=== PATIENT | female | born 1960 | race Caucasian/White ===

== ENCOUNTER 2022-10-13 16:10 | Inpatient (IN) ==
[2022-10-13] MEDS ORDERED: IOPAMIDOL 100 ML BOTTLE IV ONE (16:11)
--- NOTE | 2022-10-13 16:25 | Emergency Department Note ---
SOB HPI General Chief Complaint: Shortness of Breath/Dyspnea Stated Complaint: SoB Time Seen by Provider: 10/13/22 16:21 Source: EMS Mode of arrival: EMS Limitations: no limitations History of Present Illness HPI Narrative: Narrative: Patient is a 61-year-old female that presents to the emergency department today by EMS after she went to [facility] and was seen at [facility] with chief complaint of shortness of breath. Patient reports that her symptoms started approximately 6 days ago where she has been experiencing shortness of breath that is worse with ambulation. She does report a history of COPD but does not wear any oxygen at home. She has not had any cough, fevers, or chills. She denies any chest pain. She has not had any abdominal pain, nausea, or vomiting. She has not had any hemoptysis. She arrived with 3 L via nasal cannula and oxygen saturations were 90%. Room air sats were reported by EMS of 68%. Upon arrival patient's oxygen saturations were 84% on room air. Related Data Home Medications Medication Instructions Recorded Confirmed atenolol 25 mg tablet 50 mg PO DAILY 07/16/15 06/29/21 fluoxetine 40 mg capsule (Prozac) 40 mg PO DAILY 07/16/15 06/29/21 imipramine HCl 50 mg tablet 150 mg PO HS 07/16/15 06/29/21 albuterol sulfate 90 mcg/actuation 1 - 2 puff PO Q4HP PRN wheezing 05/26/21 06/29/21 aerosol inhaler (Ventolin HFA) aspirin 81 mg tablet,delayed 1 tab PO QDAY 05/26/21 06/29/21 release atorvastatin 40 mg tablet 1 tab PO QDAY 05/26/21 06/29/21 bupropion HCl 150 mg tablet,12 hr 1 tab PO QDAY 05/26/21 06/29/21 sustained-release clopidogrel 75 mg tablet 1 tab PO QDAY 05/26/21 06/29/21 methadone 10 mg tablet 10 mg PO Q6H PRN Pain 05/26/21 06/29/21 Allergies Allergy/AdvReac Type Severity Reaction Status Date / Time nitrofurantoin Allergy Unknown Vomiting Verified 06/29/21 10:19 [From Macrodantin] Review of Systems ROS ROS Narrative: Narrative: All systems ED: reviewed and negative except as stated. PFSH Narrative Patient History Narrative: Narrative: Medical/Surgical/Family History All Active Problems (Updated 10/13/22 @ 22:09 by Irineo Lester DNP) Hypokalemia (Acute) COPD (chronic obstructive pulmonary disease) (Chronic) Elevated hemidiaphragm (Chronic) Chronic back pain (Chronic) Tension headache (Chronic) Panic attacks (Chronic) Gastric ulcer (Chronic) Anxiety and depression (Chronic) Fibrocystic breast disease (Chronic) Postmenopausal HRT (hormone replacement therapy) (Chronic) History of cervical cancer (Chronic) Sicca syndrome (Chronic) Rash and other nonspecific skin eruption (Chronic) Neck pain (Chronic) Hot flashes (Chronic) Anemia (Chronic) GERD (gastroesophageal reflux disease) (Chronic) Hypercholesterolemia (Chronic) Fasting hyperglycemia (Chronic) Mitral valve prolapse (Chronic) Other speech disturbance (Chronic) Insomnia (Chronic) Hypertension (Chronic) Hyperlipidemia (Chronic) Bronchitis (Chronic) Other fdc (current) drug therapy (Chronic) Pain of both sacroiliac joints (Chronic) Rheumatoid arthritis (Chronic) Opioid dependence (Chronic) Occipital neuralgia (Chronic) Lumbar radiculopathy (Chronic) Lumbar back pain (Chronic) Panlobular emphysema (Chronic) Daytime hypersomnia (Chronic) Osteopenia (Chronic) Stenosis of right carotid artery (Chronic) Transient ischemic attack (Chronic) Poor balance (Chronic) Poor short term memory (Chronic) Arthritis of right wrist (Chronic) Other specified fracture of left pubis, initial encounter for closed fracture (Chronic) Acute low back pain (Chronic) Hypoxemia (Chronic) Unspecified fracture of sacrum, subsequent encounter for fracture with routine healing (Chronic) Fungal dermatitis (Chronic) SOB (shortness of breath) (Chronic) Pneumonia due to coronavirus disease 2019 (Chronic) Interstitial pulmonary disease, unspecified (Chronic) Urinary frequency (Chronic) Hypoxia (Chronic) Dyspnea (Chronic) COVID-19 long hauler (Chronic) Bilateral pneumonia (Chronic) COVID-19 (Chronic) Laceration (Chronic) Medical History Acute low back pain Anemia Anxiety and depression Arthritis of right wrist Bilateral pneumonia Bronchitis Chronic back pain COPD (chronic obstructive pulmonary disease) COVID-19 COVID-19 long hauler Daytime hypersomnia Dyspnea Elevated hemidiaphragm right Fasting hyperglycemia Fibrocystic breast disease Fungal dermatitis Gastric ulcer GERD (gastroesophageal reflux disease) History of cervical cancer Hot flashes Hypercholesterolemia Hyperlipidemia Hypertension Hypoxemia Hypoxia Insomnia Interstitial pulmonary disease, unspecified Laceration Lumbar back pain Lumbar radiculopathy Mitral valve prolapse Neck pain Occipital neuralgia Opioid dependence Osteopenia Other fdc (current) drug therapy Other specified fracture of left pubis, initial encounter for closed fracture Other speech disturbance Pain of both sacroiliac joints Panic attacks Panlobular emphysema Pneumonia due to coronavirus disease 2019 Poor balance Poor short term memory Postmenopausal HRT (hormone replacement therapy) Rash and other nonspecific skin eruption Rheumatoid arthritis Sicca syndrome SOB (shortness of breath) Stenosis of right carotid artery Tension headache Transient ischemic attack Carotid territory Unspecified fracture of sacrum, subsequent encounter for fracture with routine healing Urinary frequency Surgical History History of section History of hysterectomy Total; cervical cancer Family History Mother , age 69, had 13 strokes Stroke Father Hypertension Sister Substance use Family/Other Depression Social History Smoking Status: Former smoker Alcohol Intake Frequency: does not drink Substance Use: does not use Exam Narrative Narrative: Narrative: General Limitations: no limitations General appearance: Present alert and in no apparent distress Eye Eye: Present normal appearance; Absent scleral icterus ENT ENT: Present mucous membranes moist Neck Neck: Present normal inspection and full ROM; Absent lymphadenopathy Chest Chest: Present normal inspection and symmetric chest wall rise; Absent tenderness Respiratory Respiratory: Present normal lung sounds bilaterally; Absent respiratory distress, rales/crackles, wheezes or accessory muscle use Cardiovascular Cardiovascular: Present regular rate, normal rhythm and normal heart sounds Extremities Extremities: Present normal inspection and normal capillary refill; Absent pedal edema, pretibial edema, joint swelling or cyanosis Neurological Neurological: Present alert and oriented X3 Psychiatric Psychiatric: Present normal affect and normal mood Skin Skin: Present warm (WNL), dry and normal color Course Vital Signs Vital signs: Vital Signs Temperature 98.1 F 10/13/22 16:11 Pulse Rate 79 10/13/22 16:11 Respiratory Rate 20 10/13/22 16:11 Blood Pressure 140/84 10/13/22 16:11 Pulse Oximetry (%) 100 10/13/22 16:11 Oxygen Delivery Method Room Air 10/13/22 16:11 Temperature 98.1 F 10/13/22 16:11 Pulse Rate 82 10/13/22 21:32 Respiratory Rate 12 10/13/22 21:32 Blood Pressure 110/79 10/13/22 21:06 Pulse Oximetry (%) 92 10/13/22 21:32 Oxygen Delivery Method Nasal Cannula 10/13/22 21:32 Oxygen Flow Rate (L/min) 2 10/13/22 21:32 MDM MDM Narrative Medical decision making narrative: Narrative: Patient is a 61-year-old female who presented to the emergency department today by EMS after she was initially evaluated at [facility] earlier today and was found to be hypoxic on room air. Patient reported starting to have symptoms of shortness of breath 6 days ago. She does not have oxygen at home and reports history of COPD. On arrival to the emergency department she received a DuoNeb from EMS. Her lung sounds are clear to auscultate. After the DuoNeb she is still requiring 1 L of O2 via nasal cannula to keep oxygen saturations greater than 90% today in the emergency department. Proceed with cardiac work- up to evaluate for acute coronary syndrome as well as differential diagnosis is of potential PE and pneumonia. Patient's EKG today is normal sinus rhythm with rate of 74. QTc 529 and QT 476. The EKG to my review does not show any findings of acute coronary syndrome. Her [id number] troponin today is negative. The 1 view chest x-ray to my review I do not see any definite infiltrate, pneumothorax, or sign of acute cardiopulmonary finding. Proceed with CTA of chest to evaluate for potential PE cause for the patient to have the hypoxia today. CTA findings does not reveal any PE today. Findings are more consistent with COPD. Patient's [id number] chemistry panel today reveals potassium is 2.7. Patient's sodium is 138. Her creatinine 0.6. Glucose 120. She was given 40 mEq of oral potassium prior supplementation of the hypokalemia and 20 mEq K rider intravenously. Patient's procalcitonin today is normal. CBC is rather normal. She does not have any leukocytosis or anemia. Her hepatic panel is unremarkable. COVID-19 and influenza testing today are negative. Radiologist did read the chest x-ray and that shows moderate atypical CHF. Patient's proBNP today is 1585. June of last year this was 758. She did not have improvement with DuoNeb today when she arrived to the emergency department. She is still requiring O2 and does not have O2 at home. I feel that admitting patient for her hypoxia today would be of best interest for the patient where arrangements could be made for home O2 use, replacement of potassium with monitoring of potassium level, and diuresis could be done as an inpatient. Abiodun rios was receiving potassium supplement today for the hypokalemia. I did proceeded with 20 mg of IV furosemide for diuresis today to see if this would help with the patients symptoms as potential fluid overload could be a possibility. I was able to speak with Dr. Cortes who is on today for the hospitalist and he accepted patient for hospital admission as she does have any hypoxia. We were able to review the CTA findings that are more consistent with likely COPD changes rather than CHF on the CT scan. Patient was given the 20 mg of IV furosemide today for some diuresis, and Dr. Cortes had ordered some inflammatory markers and will plan on admitting patient for the hypokalemia and hypoxia as she is requiring supplemental oxygen does not have any oxygen at home. Lab Data Lab results reviewed: Yes I reviewed the patient's lab results. 10/13/22 16:52 Labs: Lab Results 10/13/22 10/13/22 10/13/22 Range/Units 16:52 16:52 16:52 WBC 9.7 (4.5-11.0) K/mcL RBC 4.35 (3.59-5.38) M/mcL Hgb 12.6 (11.2-15.7) g/dL Hct 39.1 (34.1-44.9) % POC Hct (36-48) MCV 89.9 (80.0-100.0) fL MCH 29.0 (26.0-34.0) pg MCHC 32.2 (31.0-36.0) g/dL RDW 12.0 (11.5-14.5) % Plt Count 325 (140-440) K/mcL MPV 9.7 (8.8-12.5) fL Immature Gran % (Auto) 0.3 (0.0-0.5) % Neut % (Auto) 56.2 (38.0-78.0) % Lymph % (Auto) 29.7 (15.5-49.0) % [place] % (Auto) 8.6 (1.0-12.0) % Eos % (Auto) 4.7 (0.0-7.0) % Baso % (Auto) 0.5 (0.0-2.0) % Lymph # (Auto) 2.88 (1.50-4.80) K/mcL [place] # (Auto) 0.83 (0.10-0.90) K/mcL Eos # (Auto) 0.46 (0.00-0.70) K/mcL Baso # (Auto) 0.05 (0.00-0.30) K/mcL Immature Gran # 0.03 (0.00-0.05) K/mcl Absolute Neutrophils 5.44 (1.80-8.00) K/mcL ESR (0-30) mm/hr POC Sodium (133-145) POC Potassium (3.3-5.1) POC Chloride (96-108) POC Total CO2 (22-30) POC Anion Gap (8.0-16.0) POC BUN (6-20) POC Creatinine (0.6-1.2) POC Glucose (70-105) POC WB Ioniz Calcium (1.16-1.32) Total Bilirubin 0.4 (0.1-1.0) mg/dL Direct Bilirubin < 0.2 (0-0.3) mg/dL AST 22 (<32) U/L ALT 12 (<40) U/L Alkaline Phosphatase 149 H (39-117) U/L C-Reactive Protein (0.03-0.80) mg/dL NT-Pro-B Natriuret Pep (<125.0) pg/mL Total Protein 7.4 (5.9-8.4) gm/dL Albumin 3.7 (3.2-5.2) gm/dL Globulin 3.7 (2.2-3.7) gm/dL Procalcitonin 0.05 (<0.10) ng/mL POC Troponin I (0.00-0.08) 10/13/22 10/13/22 10/13/22 Range/Units 16:52 16:52 16:56 WBC (4.5-11.0) K/mcL RBC (3.59-5.38) M/mcL Hgb (11.2-15.7) g/dL Hct (34.1-44.9) % POC Hct 41.0 (36-48) MCV (80.0-100.0) fL MCH (26.0-34.0) pg MCHC (31.0-36.0) g/dL RDW (11.5-14.5) % Plt Count (140-440) K/mcL MPV (8.8-12.5) fL Immature Gran % (Auto) (0.0-0.5) % Neut % (Auto) (38.0-78.0) % Lymph % (Auto) (15.5-49.0) % [place] % (Auto) (1.0-12.0) % Eos % (Auto) (0.0-7.0) % Baso % (Auto) (0.0-2.0) % Lymph # (Auto) (1.50-4.80) K/mcL [place] # (Auto) (0.10-0.90) K/mcL Eos # (Auto) (0.00-0.70) K/mcL Baso # (Auto) (0.00-0.30) K/mcL Immature Gran # (0.00-0.05) K/mcl Absolute Neutrophils (1.80-8.00) K/mcL ESR 73 H (0-30) mm/hr POC Sodium 138 (133-145) POC Potassium 2.7 L* (3.3-5.1) POC Chloride 98 (96-108) POC Total CO2 27.0 (22-30) POC Anion Gap 16.0 (8.0-16.0) POC BUN 10 (6-20) POC Creatinine 0.6 (0.6-1.2) POC Glucose 120 H (70-105) POC WB Ioniz Calcium 1.14 L (1.16-1.32) Total Bilirubin (0.1-1.0) mg/dL Direct Bilirubin (0-0.3) mg/dL AST (<32) U/L ALT (<40) U/L Alkaline Phosphatase (39-117) U/L C-Reactive Protein 15.70 H (0.03-0.80) mg/dL NT-Pro-B Natriuret Pep (<125.0) pg/mL Total Protein (5.9-8.4) gm/dL Albumin (3.2-5.2) gm/dL Globulin (2.2-3.7) gm/dL Procalcitonin (<0.10) ng/mL POC Troponin I (0.00-0.08) 10/13/22 10/13/22 Range/Units 16:59 17:14 WBC (4.5-11.0) K/mcL RBC (3.59-5.38) M/mcL Hgb (11.2-15.7) g/dL Hct (34.1-44.9) % POC Hct (36-48) MCV (80.0-100.0) fL MCH (26.0-34.0) pg MCHC (31.0-36.0) g/dL RDW (11.5-14.5) % Plt Count (140-440) K/mcL MPV (8.8-12.5) fL Immature Gran % (Auto) (0.0-0.5) % Neut % (Auto) (38.0-78.0) % Lymph % (Auto) (15.5-49.0) % [place] % (Auto) (1.0-12.0) % Eos % (Auto) (0.0-7.0) % Baso % (Auto) (0.0-2.0) % Lymph # (Auto) (1.50-4.80) K/mcL [place] # (Auto) (0.10-0.90) K/mcL Eos # (Auto) (0.00-0.70) K/mcL Baso # (Auto) (0.00-0.30) K/mcL Immature Gran # (0.00-0.05) K/mcl Absolute Neutrophils (1.80-8.00) K/mcL ESR (0-30) mm/hr POC Sodium (133-145) POC Potassium (3.3-5.1) POC Chloride (96-108) POC Total CO2 (22-30) POC Anion Gap (8.0-16.0) POC BUN (6-20) POC Creatinine (0.6-1.2) POC Glucose (70-105) POC WB Ioniz Calcium (1.16-1.32) Total Bilirubin (0.1-1.0) mg/dL Direct Bilirubin (0-0.3) mg/dL AST (<32) U/L ALT (<40) U/L Alkaline Phosphatase (39-117) U/L C-Reactive Protein (0.03-0.80) mg/dL NT-Pro-B Natriuret Pep 1585.0 H (<125.0) pg/mL Total Protein (5.9-8.4) gm/dL Albumin (3.2-5.2) gm/dL Globulin (2.2-3.7) gm/dL Procalcitonin (<0.10) ng/mL POC Troponin I < 0.02 (0.00-0.08) Radiology Data Radiology results reviewed: Yes I reviewed the patient's radiology results. Radiology results narrative: Ordering Physician:Irineo Lester DNP Date of Service:10/13/22 Procedure(s):XR chest 1V portable CLINICAL INFORMATION: dyspnea COMPARISON: 10/08/2022 FINDINGS: Heart is borderline enlarged. Mediastinum is unremarkable. Pulmonary vessels are mildly distended with moderate interstitial edema throughout both lungs. Bullous disease seen in the right lung base. No effusions. Moderate chronic elevation right diaphragm unchanged IMPRESSION: Moderate atypical CHF Interpreted and Authenticated by: Mina Dc 10/13/22 Ordering Physician:Irineo Lester DNP Date of Service:10/13/22 Procedure(s):CT angio chest CLINICAL INFORMATION: Hypoxia COMPARISON: Chest CT 05/28/2021 TECHNIQUE: 80ml of Isovue-370 were injected intravenously. Using SmartPrep to maximize pulmonary artery opacification, .625mm helical slices were obtained from the lung apices through the lung bases. Following reconstruction, 2.5 mm sagittal, coronal, and axial reformations were processed. The exam was reviewed at mediastinal, lung, and bone windows. The exam was performed using radiation dose optimization techniques including, but not limited to, automated exposure control, adjustment of the mA and/or kV according to patient size and use of iterative reconstruction technique. FINDINGS: Pulmonary parenchymal windows show moderate centrilobular emphysema featuring chronic bronchitis with elevated lung volumes and wall thickening/dilatation of the bronchi. There are multiple bullae predominantly in the upper lobes and also scattered within both lower and right middle lobes. In addition, there is patchy groundglass airspace disease throughout the left lung, the posterior segment of the right upper lobe and the superior segment of the right lower lobe. This has actually improved since the comparison exam approximately 1.5 years ago. There are no nodules. Pleural spaces are normal. Mediastinal windows show the heart is grossly normal in size and configuration. The central pulmonary arteries are moderately enlarged with the main pulmonary artery diameter of 3.6 cm findings are compatible pulmonary hypertension related to chronic lung disease. The pulmonary arteries are also well opacified-no evidence of embolus. Multiple mildly enlarged lymph nodes in the hilar and pericarinal region are unchanged compatible with benign reactive adenopathy related to chronic inflammation. The esophagus is grossly normal. The thyroid is unremarkable. Bone and soft tissues of the chest wall show no abnormality. Images through the superior abdomen are normal. IMPRESSION: 1. No evidence of pulmonary embolus. 2. Moderate centrilobular emphysema. 3. Patchy groundglass airspace disease throughout the left lung, posterior segment of the right upper lobe and superior segment of the right lower lobe. This has actually improved moderately since the comparison CT 1.5 years ago. Differential diagnosis for chronic groundglass disease includes hypersensitivity pneumonitis, organizing pneumonia, chronic eosinophilic pneumonia, and alveolar proteinosis. Consider pulmonology referral. 4. Moderate central pulmonary artery enlargement compatible with pulmonary hypertension related to chronic lung disease 5. Mildly enlarged lymph nodes in both hilar and lower mediastinal region are unchanged and compatible with benign reactive adenopathy related to chronic pulmonary inflammatory disease. Interpreted and Authenticated by: Mina Dc 10/13/22 Discharge Plan Patient/Caregiver Discharge Instructions Pt seen by DINING ROOM SUPERVISOR/PA only: No Clinical Impression: Hypoxia, Hypokalemia, COPD (chronic obstructive pulmonary disease) Patient Disposition: Xfer As Inpt ([facility]) Follow up with: Stolte,Keke R, JUNIOR ACCOUNTANT BOOKKEEPER [Primary Care Provider] - Prescriptions: No Action Trelegy Ellipta 100-62.5-25 mcg blister with device 0RF fluoxetine [Prozac] 40 MG capsule 40 mg PO DAILY imipramine HCl 50 MG tablet 150 mg PO HS atenolol 25 MG tablet 50 mg PO DAILY atorvastatin 40 mg tablet 1 tab PO QDAY bupropion HCl 150 mg tablet sustained-release 12 hr 1 tab PO QDAY methadone 10 mg Tablet 10 mg PO Q6H PRN (Reason: Pain) clopidogrel 75 mg tablet 1 tab PO QDAY aspirin 81 mg tablet,delayed release (DR/EC) 1 tab PO QDAY albuterol sulfate [Ventolin HFA] 90 mcg/actuation HFA aerosol inhaler 1 - 2 puff PO Q4HP PRN (Reason: wheezing)
[2022-10-13 17:10] LABS: POC Calcium, Ionized 1.14 (1.16-1.32); POC Creatinine 0.6 (0.6-1.2); POC Potassium 2.7 (3.3-5.1)
[2022-10-13] MEDS ORDERED: POTASSIUM CHLORIDE 20 MEQ TABLET PO ONE ×2 (17:12→22:24)
[2022-10-13] MEDS ORDERED: POTASSIUM CHLORIDE 20 MEQ in DEXTROSE 5% IN WATER 250 ML IV ONE (17:12)
--- NOTE | 2022-10-13 17:21 | XRay Report ---
CLINICAL INFORMATION: dyspnea COMPARISON: 10/08/2022 FINDINGS: Heart is borderline enlarged. Mediastinum is unremarkable. Pulmonary vessels are mildly distended with moderate interstitial edema throughout both lungs. Bullous disease seen in the right lung base. No effusions. Moderate chronic elevation right diaphragm unchanged IMPRESSION: Moderate atypical CHF Interpreted and Authenticated by: Mina Dc 10/13/22
[2022-10-13 17:34] LABS: Basophils # (Auto) 0.05 K/mcL (0.00-0.30); Basophils % (Auto) 0.5 % (0.0-2.0); Eosinophils # (Auto) 0.46 K/mcL (0.00-0.70); Eosinophils % (Auto) 4.7 % (0.0-7.0); Hematocrit 39.1 % (34.1-44.9); Hemoglobin 12.6 g/dL (11.2-15.7); Lymphocytes # (Auto) 2.88 K/mcL (1.50-4.80); Lymphocytes % (Auto) 29.7 % (15.5-49.0); Mean Cell Volume 89.9 fL (80.0-100.0); Mean Corpuscular HGB Conc 32.2 g/dL (31.0-36.0); Mean Platelet Volume 9.7 fL (8.8-12.5); Monocytes # (Auto) 0.83 K/mcL (0.10-0.90); Monocytes % (Auto) 8.6 % (1.0-12.0); Neutrophils % (Auto) 56.2 % (38.0-78.0); Platelet Count 325 K/mcL (140-440); RBC 4.35 M/mcL (3.59-5.38); WBC 9.7 K/mcL (4.5-11.0)
[2022-10-13 17:59] LABS: ALT/SGPT 12 U/L (<40); AST/SGOT 22 U/L (<32); Albumin 3.7 gm/dL (3.2-5.2); Alkaline Phosphatase 149 U/L (39-117); Bilirubin,Direct < 0.2 mg/dL (0-0.3); Bilirubin,Total 0.4 mg/dL (0.1-1.0); Globulin 3.7 gm/dL (2.2-3.7)
[2022-10-13] MEDS ORDERED: FUROSEMIDE 20 MG/2 ML VIAL IV ONE (18:37)
--- NOTE | 2022-10-13 19:00 | Cat Scan Report ---
CLINICAL INFORMATION: Hypoxia COMPARISON: Chest CT 05/28/2021 TECHNIQUE: 80ml of Isovue-370 were injected intravenously. Using SmartPrep to maximize pulmonary artery opacification, .625mm helical slices were obtained from the lung apices through the lung bases. Following reconstruction, 2.5 mm sagittal, coronal, and axial reformations were processed. The exam was reviewed at mediastinal, lung, and bone windows. The exam was performed using radiation dose optimization techniques including, but not limited to, automated exposure control, adjustment of the mA and/or kV according to patient size and use of iterative reconstruction technique. FINDINGS: Pulmonary parenchymal windows show moderate centrilobular emphysema featuring chronic bronchitis with elevated lung volumes and wall thickening/dilatation of the bronchi. There are multiple bullae predominantly in the upper lobes and also scattered within both lower and right middle lobes. In addition, there is patchy groundglass airspace disease throughout the left lung, the posterior segment of the right upper lobe and the superior segment of the right lower lobe. This has actually improved since the comparison exam approximately 1.5 years ago. There are no nodules. Pleural spaces are normal. Mediastinal windows show the heart is grossly normal in size and configuration. The central pulmonary arteries are moderately enlarged with the main pulmonary artery diameter of 3.6 cm findings are compatible pulmonary hypertension related to chronic lung disease. The pulmonary arteries are also well opacified-no evidence of embolus. Multiple mildly enlarged lymph nodes in the hilar and pericarinal region are unchanged compatible with benign reactive adenopathy related to chronic inflammation. The esophagus is grossly normal. The thyroid is unremarkable. Bone and soft tissues of the chest wall show no abnormality. Images through the superior abdomen are normal. IMPRESSION: 1. No evidence of pulmonary embolus. 2. Moderate centrilobular emphysema. 3. Patchy groundglass airspace disease throughout the left lung, posterior segment of the right upper lobe and superior segment of the right lower lobe. This has actually improved moderately since the comparison CT 1.5 years ago. Differential diagnosis for chronic groundglass disease includes hypersensitivity pneumonitis, organizing pneumonia, chronic eosinophilic pneumonia, and alveolar proteinosis. Consider pulmonology referral. 4. Moderate central pulmonary artery enlargement compatible with pulmonary hypertension related to chronic lung disease 5. Mildly enlarged lymph nodes in both hilar and lower mediastinal region are unchanged and compatible with benign reactive adenopathy related to chronic pulmonary inflammatory disease. Interpreted and Authenticated by: Mina Dc 10/13/22
[2022-10-13] MEDS ORDERED: HYDROcodone/APAP 5/325MG TABLET PO ONE (20:37)
--- NOTE | 2022-10-13 21:15 | Internal Med History&Physical ---
HPI History of Present Illness Patient information: Note initiated : 10/13/22 at 9:07 pm Service Date, if different from initiated Date: [] Patient: Kin Shell a 61 y/o F admitted on . Chief Complaint: [] History of present illness: Ms. Shell is a 61 year old F Presents the ED with shortness of breath for past 6 days. Patient states she went to bed feeling okay on but Sunday started feeling crummy and short of breath especially with exertion. Patient has history of COVID-pneumonia and interstitial lung disease was on oxygen after her pneumonia for few months last year. Denies any fever chills or wheezing. Denies any cough or chest pain or sinus congestion. No swelling in her legs. Does complain of headache. In the ED she was hypoxic in the mid 80s and put on oxygen. CTA of the chest showed no PE but did showed moderate emphysema as well as bilateral groundglass opacities which have been present on previous imaging. Patient noted to be hypokalemic in the ED and given potassium. Troponin and procalcitonin were unremarkable. VBG unremarkable. Patient anxious and keeps asking about her chronic pain medication. Review of Systems: Pertinent positives as above. Denies fever/chills/nausea/vomiting/chest or abdo marisabel pain/cough/diarrhea. Remaining 10 point review of system reviewed negative. PHYSICAL EXAM General: Alert, Awake, No acute Distress Eyes/N/T: EOMI, no scleral icterus, PERRL, Head/Neck: neck supple, full ROM, normocephalic atraumatic CV: RRR, No murmurs, normal s1/s2 Pulm: subtle mild fine rale, no wheezingno respiratory distress Abd: soft, nontender, +BS x4 Ext: no clubbing/cyanosis/edema, nontender Neuro: Alert, CN 2-12 grossly intact, no focal deficits, moves all extremities, , sensations intact b/l upper/lower Psychiatric: Anxious Skin: warm/dry, normal color PFSH PFSH All Active Problems (Updated 10/13/22 @ 18:53 by Irineo Lester DNP) Congestive heart failure (Acute) Hypokalemia (Acute) COPD (chronic obstructive pulmonary disease) (Chronic) Elevated hemidiaphragm (Chronic) Chronic back pain (Chronic) Tension headache (Chronic) Panic attacks (Chronic) Gastric ulcer (Chronic) Anxiety and depression (Chronic) Fibrocystic breast disease (Chronic) Postmenopausal HRT (hormone replacement therapy) (Chronic) History of cervical cancer (Chronic) Sicca syndrome (Chronic) Rash and other nonspecific skin eruption (Chronic) Neck pain (Chronic) Hot flashes (Chronic) Anemia (Chronic) GERD (gastroesophageal reflux disease) (Chronic) Hypercholesterolemia (Chronic) Fasting hyperglycemia (Chronic) Mitral valve prolapse (Chronic) Other speech disturbance (Chronic) Insomnia (Chronic) Hypertension (Chronic) Hyperlipidemia (Chronic) Bronchitis (Chronic) 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) Pain of both sacroiliac joints (Chronic) Rheumatoid arthritis (Chronic) Opioid dependence (Chronic) Occipital neuralgia (Chronic) Lumbar radiculopathy (Chronic) Lumbar back pain (Chronic) Panlobular emphysema (Chronic) Daytime hypersomnia (Chronic) Osteopenia (Chronic) Stenosis of right carotid artery (Chronic) Transient ischemic attack (Chronic) Poor balance (Chronic) Poor short term memory (Chronic) Arthritis of right wrist (Chronic) Other specified fracture of left pubis, initial encounter for closed fracture (Chronic) Acute low back pain (Chronic) Hypoxemia (Chronic) Unspecified fracture of sacrum, subsequent encounter for fracture with routine healing (Chronic) Fungal dermatitis (Chronic) SOB (shortness of breath) (Chronic) Pneumonia due to coronavirus disease 2019 (Chronic) Interstitial pulmonary disease, unspecified (Chronic) Urinary frequency (Chronic) Hypoxia (Chronic) Dyspnea (Chronic) COVID-19 long hauler (Chronic) Bilateral pneumonia (Chronic) COVID-19 (Chronic) Laceration (Chronic) Medical History Acute low back pain Anemia Anxiety and depression Arthritis of right wrist Bilateral pneumonia Bronchitis Chronic back pain COPD (chronic obstructive pulmonary disease) COVID-19 COVID-19 long hauler Daytime hypersomnia Dyspnea Elevated hemidiaphragm right Fasting hyperglycemia Fibrocystic breast disease Fungal dermatitis Gastric ulcer GERD (gastroesophageal reflux disease) History of cervical cancer Hot flashes Hypercholesterolemia Hyperlipidemia Hypertension Hypoxemia Hypoxia Insomnia Interstitial pulmonary disease, unspecified Laceration Lumbar back pain Lumbar radiculopathy Mitral valve prolapse Neck pain Occipital neuralgia Opioid dependence Osteopenia 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 Other specified fracture of left pubis, initial encounter for closed fracture Other speech disturbance Pain of both sacroiliac joints Panic attacks Panlobular emphysema Pneumonia due to coronavirus disease 2019 Poor balance Poor short term memory Postmenopausal HRT (hormone replacement therapy) Rash and other nonspecific skin eruption Rheumatoid arthritis Sicca syndrome SOB (shortness of breath) Stenosis of right carotid artery Tension headache Transient ischemic attack Carotid territory Unspecified fracture of sacrum, subsequent encounter for fracture with routine healing Urinary frequency Surgical History History of section History of hysterectomy Total; cervical cancer Family History Mother , age 69, had 13 strokes Stroke Father Hypertension Sister Substance use Family/Other Depression Social History marital status: occupational status: retired physical activity: none smoking status: Former smoker alcohol intake frequency: does not drink substance use type: does not use additional history: Quit smoking in 2019. MEDS/ALLERGIES Home Medications and Allergies Home Medications Medication Instructions Recorded Confirmed Type atenolol 25 mg tablet 50 mg PO DAILY 07/16/15 06/29/21 History fluoxetine 40 mg capsule (Prozac) 40 mg PO DAILY 07/16/15 06/29/21 History imipramine HCl 50 mg tablet 150 mg PO HS 07/16/15 06/29/21 History albuterol sulfate 90 mcg/actuation 1 - 2 puff PO Q4HP PRN wheezing 05/26/21 06/29/21 History aerosol inhaler (Ventolin HFA) aspirin 81 mg tablet,delayed 1 tab PO QDAY 05/26/21 06/29/21 History release atorvastatin 40 mg tablet 1 tab PO QDAY 05/26/21 06/29/21 History bupropion HCl 150 mg tablet,12 hr 1 tab PO QDAY 05/26/21 06/29/21 History sustained-release clopidogrel 75 mg tablet 1 tab PO QDAY 05/26/21 06/29/21 History methadone 10 mg tablet 10 mg PO Q6H PRN Pain 05/26/21 06/29/21 History Allergies Allergy/AdvReac Type Severity Reaction Status Date / Time nitrofurantoin Allergy Unknown Vomiting Verified 06/29/21 10:19 [From Macrodantin] EXAM Constitutional Vitals: Temp Pulse Resp BP Pulse Ox O2 Del Method O2 Flow Rate 98.1 F 85 29 H 138/78 90 Nasal Cannula 2 10/13/22 16:11 10/13/22 20:55 10/13/22 20:55 10/13/22 20:05 10/13/22 20:55 10/13/22 18:06 10/13/22 18:06 DATA Data Completed and Pending Labs: Labs from last 24 hours 10/13/22 10/13/22 10/13/22 17:14 16:59 16:56 WBC RBC Hgb Hct POC Hct 41.0 MCV MCH MCHC RDW Plt Count MPV Immature Gran % (Auto) Neut % (Auto) Lymph % (Auto) Lipscomb % (Auto) Eos % (Auto) Baso % (Auto) Lymph # (Auto) Lipscomb # (Auto) Eos # (Auto) Baso # (Auto) Immature Gran # Absolute Neutrophils ESR POC Sodium 138 POC Potassium 2.7 L* POC Chloride 98 POC Total CO2 27.0 POC Anion Gap 16.0 POC BUN 10 POC Creatinine 0.6 POC Glucose 120 H POC WB Ioniz Calcium 1.14 L Total Bilirubin Direct Bilirubin AST ALT Alkaline Phosphatase C-Reactive Protein NT-Pro-B Natriuret Pep 1585.0 H Total Protein Albumin Globulin Procalcitonin POC Troponin I < 0.02 10/13/22 10/13/22 10/13/22 16:52 16:52 16:52 WBC RBC Hgb Hct POC Hct MCV MCH MCHC RDW Plt Count MPV Immature Gran % (Auto) Neut % (Auto) Lymph % (Auto) Lipscomb % (Auto) Eos % (Auto) Baso % (Auto) Lymph # (Auto) Lipscomb # (Auto) Eos # (Auto) Baso # (Auto) Immature Gran # Absolute Neutrophils ESR Pending POC Sodium POC Potassium POC Chloride POC Total CO2 POC Anion Gap POC BUN POC Creatinine POC Glucose POC WB Ioniz Calcium Total Bilirubin Direct Bilirubin AST ALT Alkaline Phosphatase C-Reactive Protein Pending NT-Pro-B Natriuret Pep Total Protein Albumin Globulin Procalcitonin 0.05 POC Troponin I 10/13/22 10/13/22 16:52 16:52 WBC 9.7 RBC 4.35 Hgb 12.6 Hct 39.1 POC Hct MCV 89.9 MCH 29.0 MCHC 32.2 RDW 12.0 Plt Count 325 MPV 9.7 Immature Gran % (Auto) 0.3 Neut % (Auto) 56.2 Lymph % (Auto) 29.7 Lipscomb % (Auto) 8.6 Eos % (Auto) 4.7 Baso % (Auto) 0.5 Lymph # (Auto) 2.88 Lipscomb # (Auto) 0.83 Eos # (Auto) 0.46 Baso # (Auto) 0.05 Immature Gran # 0.03 Absolute Neutrophils 5.44 ESR POC Sodium POC Potassium POC Chloride POC Total CO2 POC Anion Gap POC BUN POC Creatinine POC Glucose POC WB Ioniz Calcium Total Bilirubin 0.4 Direct Bilirubin < 0.2 AST 22 ALT 12 Alkaline Phosphatase 149 H C-Reactive Protein NT-Pro-B Natriuret Pep Total Protein 7.4 Albumin 3.7 Globulin 3.7 Procalcitonin POC Troponin I A/P Narrative A/P Narrative: A: *Acute on suspected chronic hypoxic respiratory failure: suspected exacerbation of ILD *Interstitial lung disease: Was on oxygen after COVID illness a year and half ago -has seen Kathia Green *COPD( ): Not on home oxygen *Hypokalemia: *Chronic pain: *Depression/anxiety: *Carotid artery stenosis: On aspirin/statin/Plavix *HTN: on BB P: -check esr/crp -empric abx, obtain SC -myco and viral studies pending -nebs, IS/Acapella, RT, home IH's -corticosteroids -O2 supp and wean as able -Monitor replace electrolytes as needed - -Continue home aspirin/statin/Plavix -Home medication reconciliation -RT to eval for home oxygen prior to discharge -ppx: Lovenox Time Spent With Patient Time: Total time spent is greater than 50% in coordination of care (as documented) at patient's floor/unit and/or counseling patient: Initial: Total time with patient: 75 - 90 minutes
[2022-10-13] MEDS ORDERED: ONDANSETRON 4 MG/2 ML VIAL IV PRN (22:24)
[2022-10-13] MEDS ORDERED: MAGNESIUM SULFATE 2 GM/50 ML BAG IV PRN (22:24)
[2022-10-13] MEDS ORDERED: POTASSIUM CHLORIDE 20 MEQ TABLET PO PRN ×2 (22:24)
[2022-10-13] MEDS ORDERED: ACETAMINOPHEN 325 MG TABLET PO PRN (22:24)
[2022-10-13] MEDS ORDERED: IPRATROPIUM/ALBUTEROL 3 ML AMPUL.NEB NEB PRN (22:24)
[2022-10-13] MEDS ORDERED: POTASSIUM CHLORIDE 40 MEQ in DEXTROSE 5% IN WATER 500 ML IV PRN (22:24)
[2022-10-13] MEDS ORDERED: SENNOSIDES 1 TABLET PO PRN (22:24)
[2022-10-13] MEDS ORDERED: POLYETHYLENE GLYCOL 3350 17 GM PACKET PO PRN (22:24)
[2022-10-13] MEDS ORDERED: morphine 4 MG/ML VIAL IV PRN (22:24)
[2022-10-13] MEDS ORDERED: AZITHROMYCIN 500 MG VIAL IV ONE (22:46)
[2022-10-13] MEDS: IPRATROPIUM/ALBUTEROL 3 ML AMPUL.NEB NEB SCH (22:49)
[2022-10-13] MEDS: AZITHROMYCIN 500 MG in DEXTROSE 5% IN WATER 250 ML IV SCH (23:06)
[2022-10-13] MEDS ORDERED: methylPREDNISolone SOD SUCC 125 MG/2 ML VIAL ONE ×2 (23:07→23:22)
[2022-10-13] MEDS: methylPREDNISolone SOD SUCC 125 MG/2 ML VIAL IV SCH (23:07)
[2022-10-13] MEDS: 0.9 % SODIUM CHLORIDE 10 ML SYRINGE IV SCH (23:08)
[2022-10-13] MEDS ORDERED: morphine 2 MG/ML VIAL ONE (23:26)
[2022-10-13] MEDS ORDERED: IPRATROPIUM/ALBUTEROL 3 ML AMPUL.NEB NEB ONE (23:28)
[2022-10-14 00:03] LABS: Basophils % (Manual) 1 % (0-2); Eosinophils % (Manual) 3 % (0-7); Lymphocytes % 30 % (15-49); Monocytes % (Manual) 2 % (1-12); Platelet Estimate NORMAL (Normal); RBC Morphology NORMAL (Normal); Segmented Neutrophils % 64 % (38-78)
[2022-10-14] MEDS ORDERED: methylPREDNISolone SOD SUCC 40 MG/ML VIAL IV ONE (05:21)
[2022-10-14] MEDS ORDERED: IPRATROPIUM/ALBUTEROL 3 ML AMPUL.NEB NEB ONE (05:21)
[2022-10-14] MEDS: IPRATROPIUM/ALBUTEROL 3 ML AMPUL.NEB NEB SCH ×3 (05:23→21:17)
[2022-10-14] MEDS: methylPREDNISolone SOD SUCC 125 MG/2 ML VIAL IV SCH (05:23)
[2022-10-14] MEDS: 0.9 % SODIUM CHLORIDE 10 ML SYRINGE IV SCH ×3 (05:24→21:53)
[2022-10-14 07:01] LABS: ALT/SGPT 11 U/L (<40); AST/SGOT 20 U/L (<32); Albumin 3.6 gm/dL (3.2-5.2); Alkaline Phosphatase 143 U/L (39-117); Bilirubin,Direct < 0.2 mg/dL (0-0.3); Bilirubin,Total 0.4 mg/dL (0.1-1.0); Blood Urea Nitrogen 7 mg/dL (6-20); Calcium 8.6 mg/dL (8.6-10.4); Carbon Dioxide 24 mmol/L (22-30); Chloride 102 mmol/L (96-108); Globulin 3.5 gm/dL (2.2-3.7); Glomerular Filtration Rate 112; Glucose 170 mg/dL (70-105); Lactate Dehydrogenase 366 U/L (135-225); Phosphorous 2.2 mg/dL (2.5-4.5); Triglycerides 53 mg/dL (<150); Uric Acid 2.8 mg/dL (2.5-8.0)
--- NOTE | 2022-10-14 08:29 | Internal Med Progress Note ---
SUBJECTIVE Subjective Patient information: Note initiated : 10/14/22 at 8:22 am Service Date, if different from initiated Date: [] Patient: Kin Shell 61 y/o F admitted on 10/13/22. Chief Complaint: [] Interval history: History of present illness: Ms. Shell is a 61 year old F Presents the ED with shortness of breath for past 6 days. Patient states she went to bed feeling okay on but Sunday started feeling crummy and short of breath especially with exertion. Patient has history of COVID-pneumonia and interstitial lung disease was on oxygen after her pneumonia for few months last year. Denies any fever chills or wheezing. Denies any cough or chest pain or sinus congestion. No swelling in her legs. Does complain of headache. In the ED she was hypoxic in the mid 80s and put on oxygen. CTA of the chest showed no PE but did showed moderate emphysema as well as bilateral groundglass opacities which have been present on previous imaging. Patient noted to be hypokalemic in the ED and given potassium. Troponin and procalcitonin were unremarkable. VBG unremarkable. Patient anxious and keeps asking about her chronic pain medication. 10/14 Patient is feeling better overall. No coughing. On 3 L of nasal cannula and d esats easily. Continue weaning oxygen as able. Corticosteroids. Follow-up with pulmonology upon discharge. Review of Systems: Pertinent positives as above. Denies fever/chills/nausea/vomiting/chest or abdominal pain/cough/diarrhea. PHYSICAL EXAM General: Alert, Awake, No acute Distress Eyes/N/T: EOMI, no scleral icterus,, Head/Neck: neck supple, full ROM, CV: RRR, 3/6SM, Pulm: subtle mild fine rale, no wheezing, no respiratory distress Abd: soft, nontender, +BS x4 Ext: no clubbing/cyanosis/edema, nontender Neuro: Alert, , no focal deficits, moves all extremities, , sensations intact b/l upper/lower Psychiatric: Anxious Skin: warm/dry, normal color Constitutional Vitals: Vital Signs Temp Pulse Resp BP Pulse Ox O2 Del Method O2 Flow Rate 98.6 F 83 22 149/73 92 Nasal Cannula 3 10/14/22 03:47 10/14/22 03:47 10/14/22 03:47 10/14/22 03:47 10/14/22 03:47 10/14/22 03:47 10/14/22 03:47 Period Temp Pulse Resp BP Sys/Salazar Pulse Ox O2 Del Method O2 Flow Rate Last 24 Hr 97.9 F-98.6 F 72-93 12-29 110-165/73-84 84-100 Nasal Cannula- Room Air 1-5 Intake and Output 10/13/22 10/14/22 10/14/22 19:59 03:59 11:59 Intake Total 119 391 Output Total 2700 Balance 119 -2309 Weight 68.039 kg 73.936 kg Intake & Output: Intake & Output 10/13/22 10/14/22 10/14/22 19:59 03:59 11:59 Intake Total 119 391 Output Total 2700 Balance 119 -2309 Weight 68.039 kg 73.936 kg Intake: IV 119 391 Zithromax 500 mg In Dextrose 5% 250 in Water 250 ml @ 250 mls/hr IV Q24H [facility] Rx#:[id number] Potassium Chloride 20 Meq In 119 141 Dextrose 5% in Water 250 ml @ 130 mls/hr IV ONCE ONE Rx#: [id number] Output: Void Amount 2700 Other: Urine Appearance Clear Urine Color Yellow Urine Odor Normal # Voids 1 OBJ DATA Labs 10/13/22 16:52 10/14/22 05:00 Labs: Abnormal Lab Results 10/14/22 10/13/22 10/13/22 05:00 17:14 16:56 ESR POC Potassium 2.7 L* Creatinine 0.4 L Glucose 170 H POC Glucose 120 H POC WB Ioniz Calcium 1.14 L Phosphorus 2.2 L GGT 47 H Alkaline Phosphatase 143 H Lactate Dehydrogenase 366 H C-Reactive Protein NT-Pro-B Natriuret Pep 1585.0 H 10/13/22 10/13/22 10/13/22 16:52 16:52 16:52 ESR 73 H POC Potassium Creatinine Glucose POC Glucose POC WB Ioniz Calcium Phosphorus GGT Alkaline Phosphatase 149 H Lactate Dehydrogenase C-Reactive Protein 15.70 H NT-Pro-B Natriuret Pep Meds: Medications Acetaminophen (Acetaminophen 325 Mg Tablet) 650 mg PO Q6HP PRN; Protocol PRN Reason: Per Pain Protocol/Fever > 101 Albuterol/Ipratropium (Ipratropium/Albuterol 3 Ml Ampul.Neb) 3 ml NEB Q4HP PRN PRN Reason: Shortness Of Breath Albuterol/Ipratropium (Ipratropium/Albuterol 3 Ml Ampul.Neb) 3 ml NEB Q8 [facility] Last Admin: 10/14/22 05:23 Dose: 3 ml Budesonide (Budesonide 0.5 Mg/2 Ml Ampul.Neb) 0.5 mg NEB Q12 [facility] Docusate Sodium (Docusate Sodium 100 Mg Capsule) 100 mg PO BID [facility] Enoxaparin Sodium (Enoxaparin 40 Mg/0.4 Ml Syringe) 40 mg SQ DAILY [facility] Potassium Chloride 40 meq/ (Dextrose) 520 mls @ 130 mls/hr IV UD PRN PRN Reason: Potassium < 3 Magnesium Sulfate (Magnesium Sulfate) 2 gm in 50 mls @ 50 mls/hr IV UD PRN PRN Reason: Magnesium </= 1.6 Azithromycin 500 mg/ Dextrose 250 mls @ 250 mls/hr IV Q24H [facility]; Protocol Stop: 10/16/22 09:59 Last Infusion: 10/14/22 00:38 Dose: Infused Methylprednisolone Sodium Succinate (Methylprednisolone Sod Succ 40 Mg/Ml Vial) 80 mg IV Q8 [facility] Morphine Sulfate (Morphine 4 Mg/Ml Vial) 0 mg IV Q3HP PRN PRN Reason: Pain Last Admin: 10/13/22 23:27 Dose: 1 mg Ondansetron HCl (Ondansetron 4 Mg/2 Ml Vial) 4 mg IV Q4HP PRN PRN Reason: Nausea And Vomiting Polyethylene Glycol (Polyethylene Glycol 3350 17 Gm Packet) 17 gm PO DAILYP PRN PRN Reason: Constipation Potassium Chloride (Potassium Chloride 20 Meq Tablet) 40 meq PO UD PRN PRN Reason: Potssium is 3-3.5 Potassium Chloride (Potassium Chloride 20 Meq Tablet) 40 meq PO UD PRN PRN Reason: Potassium < 3 Senna (Sennosides 1 Tablet) 2 tab PO DAILYP PRN PRN Reason: Constipation Sodium Chloride (0.9 % Sodium Chloride 10 Ml Syringe) 10 ml IV Q8 [facility] Last Admin: 10/14/22 05:24 Dose: 10 ml A/P Narrative A/P Narrative: A: *Acute on suspected chronic hypoxic respiratory failure: suspected exacerbation of ILD -on 3L NC -ESR/CRP elevated -covid/flu/rsv/rvp neg *Interstitial lung disease: Was on oxygen after COVID illness a year and half ago -has seen Kathia Green *COPD(Not on home oxygen): *Hypokalemia/hypophosphatemia: *Chronic pain: *Depression/anxiety: cont psych meds *Carotid artery stenosis: On aspirin/statin/Plavix *HTN: on BB P: -empric abx, obtain SC -nebs, IS/Acapella, RT, home IH's -corticosteroids -O2 supp and wean as able -myco pending -Monitor inflammatory markers -lasix x1 today, monitor uop -Monitor replace electrolytes as needed -cont BB -Continue home aspirin/statin/Plavix -RT to eval for home oxygen prior to discharge -f/u with pulmonology upon d/c -ppx: Lovenox Time Spent With Patient Time: Total time spent is greater than 50% in coordination of care (as documented) at patient's floor/unit and/or counseling patient: Subsequent: Total time with patient: 50 - 65 Minutes
[2022-10-14] MEDS ORDERED: FUROSEMIDE 40 MG/4 ML VIAL IV SCH (09:13)
[2022-10-14] MEDS: BUDESONIDE 0.5 MG/2 ML AMPUL.NEB NEB SCH ×2 (09:22→21:17)
[2022-10-14] MEDS: METHADONE 5 MG TABLET PO PRN ×3 (10:21→23:59)
[2022-10-14] MEDS: buPROPion 150 MG TAB.SR.12H PO SCH (10:22)
[2022-10-14] MEDS: ATORVASTATIN 40 MG TABLET PO SCH (10:22)
[2022-10-14] MEDS: CLOPIDOGREL 75 MG TABLET PO SCH (10:22)
[2022-10-14] MEDS: DOCUSATE SODIUM 100 MG CAPSULE PO SCH ×2 (10:22→20:31)
[2022-10-14] MEDS: ASPIRIN 81 MG TAB.CHEW PO SCH (10:23)
[2022-10-14] MEDS: ENOXAPARIN 40 MG/0.4 ML SYRINGE SQ SCH (10:23)
--- NOTE | 2022-10-14 10:58 | Discharge Summary ---
Discharge Provider Provider IMPORTANT FOLLOW-UP INFORMATION FOR PCP: Patient information: Note initiated : 10/14/22 at 10:57 am Service Date, if different from initiated Date: [] Patient: Kin Shell 61 y/o F admitted on 10/13/22. Chief Complaint: [] Date of admission: 10/13/22 22:19 Discharge date: 10/15/22 Primary care physician: Keke Jaime Consults: 10/13/22 Consult to Physician [CONS] Stat Comment: Consulting Provider: Benjamin Cortes Reason For Exam: Physician to Consult COURSE Hospital Course Hospital course: History of present illness: Ms. Shell is a 61 year old F Presents the ED with shortness of breath for past 6 days. Patient states she went to bed feeling okay on but Sunday started feeling crummy and short of breath especially with exertion. Patient has history of COVID-pneumonia and interstitial lung disease was on oxygen after her pneumonia for few months last year. Denies any fever chills or wheezing. Denies any cough or chest pain or sinus congestion. No swelling in her legs. Does complain of headache. In the ED she was hypoxic in the mid 80s and put on oxygen. CTA of the chest showed no PE but did showed moderate emphysema as well as bilateral groundglass opacities which have been present on previous imaging. Patient noted to be hypokalemic in the ED and given potassium. Troponin and procalcitonin were unremarkable. VBG unremarkable. Patient anxious and keeps asking about her chronic pain medication. 10/14 Patient is feeling better overall. No coughing. On 3 L of nasal cannula and desats easily. Continue weaning oxygen as able. Corticosteroids. Follow-up with pulmonology upon discharge. 10/15 Patient breathing little better today on 1/2 L nasal cannula. Did give Lasix yesterday with good diuresis. Follow-up chest x-ray today. If discharging today we will have RT assess for home oxygen. BNP quite a bit lower today, suspect some volume overload component. A: *Acute on suspected chronic hypoxic respiratory failure: suspected exacerbation of ILD *Interstitial lung disease: Was on oxygen after COVID illness a year and half ago -has seen Kathia Green *COPD(Not on home oxygen): *Hypokalemia/hypophosphatemia: *Chronic pain: *Depression/anxiety: cont psych meds *Carotid artery stenosis: On aspirin/statin/Plavix *HTN: on BB P: -corticosteroids taper -RT to eval for home oxygen prior to discharge -f/u with pulmonology Discharge diagnosis: acute exacerbation of interstitial lung disease acute hypoxic respiratory Secondary discharge diagnosis: interstitial lung disease COPD electrolyte imbalance chronic pain depression anxiety chronic artery stenosis hypertension Time Spent with Patient Time attestation: Total time spent providing and/or coordinating discharge services: Time spent: Greater than 30 minutes EXAM Constitutional Vitals: Temp Pulse Resp BP Pulse Ox O2 Del Method O2 Flow Rate 98.0 F 88 16 134/80 97 Nasal Cannula 3 10/14/22 08:00 10/14/22 09:25 10/14/22 09:25 10/14/22 08:00 10/14/22 09:23 10/14/22 09:23 10/14/22 09:23 Discharge Data Data Completed and Pending Labs on day of discharge: Labs from last 24 hours 10/14/22 10/13/22 10/13/22 05:00 22:24 17:14 WBC RBC Hgb Hct POC Hct MCV MCH MCHC RDW Plt Count MPV Immature Gran % (Auto) Neut % (Auto) Lymph % (Auto) Wetzel % (Auto) Eos % (Auto) Baso % (Auto) Lymph # (Auto) Wetzel # (Auto) Eos # (Auto) Baso # (Auto) Seg Neutrophils % 64 Lymphocytes % 30 Monocytes % (Manual) 2 Eosinophils % (Manual) 3 Basophils % (Manual) 1 Immature Gran # Absolute Neutrophils Platelet Estimate Normal RBC Morphology Normal ESR POC Sodium Sodium 137 POC Potassium Potassium 4.3 POC Chloride Chloride 102 Carbon Dioxide 24 POC Total CO2 Anion Gap 11.0 POC Anion Gap POC BUN BUN 7 Creatinine 0.4 L POC Creatinine GFR Calculation 112 Glucose 170 H POC Glucose Uric Acid 2.8 Calcium 8.6 POC WB Ioniz Calcium Phosphorus 2.2 L Magnesium 1.9 Total Bilirubin 0.4 Direct Bilirubin < 0.2 GGT 47 H AST 20 ALT 11 Alkaline Phosphatase 143 H Lactate Dehydrogenase 366 H C-Reactive Protein NT-Pro-B Natriuret Pep 1585.0 H Total Protein 7.1 Albumin 3.6 Globulin 3.5 Albumin/Globulin Ratio 1.0 Triglycerides 53 Procalcitonin Mycoplasma pneumon IgG Mycoplasma pneumon IgM Ur Strep pneumoniae Ag POC Troponin I 10/13/22 10/13/22 10/13/22 16:59 16:56 16:52 WBC RBC Hgb Hct POC Hct 41.0 MCV MCH MCHC RDW Plt Count MPV Immature Gran % (Auto) Neut % (Auto) Lymph % (Auto) Wetzel % (Auto) Eos % (Auto) Baso % (Auto) Lymph # (Auto) Wetzel # (Auto) Eos # (Auto) Baso # (Auto) Seg Neutrophils % Lymphocytes % Monocytes % (Manual) Eosinophils % (Manual) Basophils % (Manual) Immature Gran # Absolute Neutrophils Platelet Estimate RBC Morphology ESR POC Sodium 138 Sodium POC Potassium 2.7 L* Potassium POC Chloride 98 Chloride Carbon Dioxide POC Total CO2 27.0 Anion Gap POC Anion Gap 16.0 POC BUN 10 BUN Creatinine POC Creatinine 0.6 GFR Calculation Glucose POC Glucose 120 H Uric Acid Calcium POC WB Ioniz Calcium 1.14 L Phosphorus Magnesium Total Bilirubin Direct Bilirubin GGT AST ALT Alkaline Phosphatase Lactate Dehydrogenase C-Reactive Protein 15.70 H NT-Pro-B Natriuret Pep Total Protein Albumin Globulin Albumin/Globulin Ratio Triglycerides Procalcitonin Mycoplasma pneumon IgG Mycoplasma pneumon IgM Ur Strep pneumoniae Ag POC Troponin I < 0.02 10/13/22 10/13/22 10/13/22 16:52 16:52 16:52 WBC RBC Hgb Hct POC Hct MCV MCH MCHC RDW Plt Count MPV Immature Gran % (Auto) Neut % (Auto) Lymph % (Auto) Wetzel % (Auto) Eos % (Auto) Baso % (Auto) Lymph # (Auto) Wetzel # (Auto) Eos # (Auto) Baso # (Auto) Seg Neutrophils % Lymphocytes % Monocytes % (Manual) Eosinophils % (Manual) Basophils % (Manual) Immature Gran # Absolute Neutrophils Platelet Estimate RBC Morphology ESR 73 H POC Sodium Sodium POC Potassium Potassium POC Chloride Chloride Carbon Dioxide POC Total CO2 Anion Gap POC Anion Gap POC BUN BUN Creatinine POC Creatinine GFR Calculation Glucose POC Glucose Uric Acid Calcium POC WB Ioniz Calcium Phosphorus Magnesium Total Bilirubin 0.4 Direct Bilirubin < 0.2 GGT AST 22 ALT 12 Alkaline Phosphatase 149 H Lactate Dehydrogenase C-Reactive Protein NT-Pro-B Natriuret Pep Total Protein 7.4 Albumin 3.7 Globulin 3.7 Albumin/Globulin Ratio Triglycerides Procalcitonin 0.05 Mycoplasma pneumon IgG Mycoplasma pneumon IgM Ur Strep pneumoniae Ag POC Troponin I 10/13/22 10/13/22 10/13/22 16:52 05:38 00:43 WBC 9.7 RBC 4.35 Hgb 12.6 Hct 39.1 POC Hct MCV 89.9 MCH 29.0 MCHC 32.2 RDW 12.0 Plt Count 325 MPV 9.7 Immature Gran % (Auto) 0.3 Neut % (Auto) 56.2 Lymph % (Auto) 29.7 Wetzel % (Auto) 8.6 Eos % (Auto) 4.7 Baso % (Auto) 0.5 Lymph # (Auto) 2.88 Wetzel # (Auto) 0.83 Eos # (Auto) 0.46 Baso # (Auto) 0.05 Seg Neutrophils % Lymphocytes % Monocytes % (Manual) Eosinophils % (Manual) Basophils % (Manual) Immature Gran # 0.03 Absolute Neutrophils 5.44 Platelet Estimate RBC Morphology ESR POC Sodium Sodium POC Potassium Potassium POC Chloride Chloride Carbon Dioxide POC Total CO2 Anion Gap POC Anion Gap POC BUN BUN Creatinine POC Creatinine GFR Calculation Glucose POC Glucose Uric Acid Calcium POC WB Ioniz Calcium Phosphorus Magnesium Total Bilirubin Direct Bilirubin GGT AST ALT Alkaline Phosphatase Lactate Dehydrogenase C-Reactive Protein NT-Pro-B Natriuret Pep Total Protein Albumin Globulin Albumin/Globulin Ratio Triglycerides Procalcitonin Mycoplasma pneumon IgG Pending Mycoplasma pneumon IgM Pending Ur Strep pneumoniae Ag Negative POC Troponin I Discharge Plan Patient/Caregiver Discharge Instructions Activity: increase activity as tolerated Diet: Regular Diet Activity Restrictions/Additional Instructions: Home oxygen set up per RT. Prescriptions: New prednisone 10 mg tablet 40 mg PO QDAY Qty: 1 0RF Rx Instructions: Take 40mg once daily for 2 days then 20mg daily for 2 days then 10mg daily x2 days then 5mg x2 days and stop Continued fluoxetine [Prozac] 40 MG capsule 40 mg PO HS imipramine HCl 50 MG tablet 150 mg PO HS atenolol 25 MG tablet 50 mg PO HS atorvastatin 40 mg tablet 1 tab PO QDAY bupropion HCl 150 mg tablet sustained-release 12 hr 1 tab PO DAILY methadone 10 mg Tablet 10 mg PO Q6H PRN (Reason: Pain) clopidogrel 75 mg tablet 1 tab PO QDAY aspirin 81 mg tablet,delayed release (DR/EC) 1 tab PO QDAY albuterol sulfate [Ventolin HFA] 90 mcg/actuation HFA aerosol inhaler 1 - 2 puff PO Q4HP PRN (Reason: wheezing) hydrocodone-acetaminophen 7.5-325 mg tablet 1 tab PO TIDP PRN (Reason: pain) Follow Up Plan Follow up with: Kathia Green ARNP [Physician] - Keke Jaime ARNP [Primary Care Provider] - Patient Disposition: Home, Self-Care Prognosis: Fair Overall status at discharge: patient is progressing back to baseline Discharge Orders: Discharge Order (Routine); Ordered 10/15/22 Ordered By: Benjamin Cortes
[2022-10-14] MEDS: methylPREDNISolone SOD SUCC 40 MG/ML VIAL IV SCH ×2 (14:08→21:53)
[2022-10-14] MEDS: AZITHROMYCIN 500 MG in DEXTROSE 5% IN WATER 250 ML IV SCH (16:15)
[2022-10-14] MEDS: HYDROCODONE/APAP 7.5/325MG TABLET PO PRN (20:36)
[2022-10-14] MEDS ORDERED: IMIPRAMINE 25 MG TABLET PO SCH (21:00)
[2022-10-14] MEDS ORDERED: FLUoxetine HCL 20 MG CAPSULE PO SCH (21:00)
[2022-10-14] MEDS ORDERED: ATENOLOL 25 MG TABLET PO SCH (21:00)
[2022-10-15] MEDS: methylPREDNISolone SOD SUCC 40 MG/ML VIAL IV SCH (05:24)
[2022-10-15] MEDS: IPRATROPIUM/ALBUTEROL 3 ML AMPUL.NEB NEB SCH ×2 (05:25→13:46)
[2022-10-15] MEDS: 0.9 % SODIUM CHLORIDE 10 ML SYRINGE IV SCH ×2 (05:25→14:05)
[2022-10-15] MEDS: HYDROCODONE/APAP 7.5/325MG TABLET PO PRN ×2 (05:29→14:03)
[2022-10-15 07:16] LABS: ALT/SGPT 12 U/L (<40); AST/SGOT 16 U/L (<32); Albumin 3.4 gm/dL (3.2-5.2); Alkaline Phosphatase 123 U/L (39-117); Bilirubin,Direct < 0.2 mg/dL (0-0.3); Bilirubin,Total 0.2 mg/dL (0.1-1.0); Blood Urea Nitrogen 11 mg/dL (6-20); Calcium 8.7 mg/dL (8.6-10.4); Carbon Dioxide 27 mmol/L (22-30); Chloride 97 mmol/L (96-108); Globulin 3.4 gm/dL (2.2-3.7); Glomerular Filtration Rate 105; Glucose 162 mg/dL (70-105); Lactate Dehydrogenase 337 U/L (135-225); Phosphorous 2.8 mg/dL (2.5-4.5); Triglycerides 67 mg/dL (<150); proBNP 468.1 pg/mL (<125.0)
--- NOTE | 2022-10-15 08:52 | Internal Med Progress Note ---
SUBJECTIVE Subjective Patient information: Note initiated : 10/15/22 at 8:51 am Service Date, if different from initiated Date: [] Patient: Kin Shell 61 y/o F admitted on 10/13/22. Chief Complaint: [] Interval history: History of present illness: Ms. Shell is a 61 year old F Presents the ED with shortness of breath for past 6 days. Patient states she went to bed feeling okay on but Sunday started feeling crummy and short of breath especially with exertion. Patient has history of COVID-pneumonia and interstitial lung disease was on oxygen after her pneumonia for few months last year. Denies any fever chills or wheezing. Denies any cough or chest pain or sinus congestion. No swelling in her legs. Does complain of headache. In the ED she was hypoxic in the mid 80s and put on oxygen. CTA of the chest showed no PE but did showed moderate emphysema as well as bilateral groundglass opacities which have been present on previous imaging. Patient noted to be hypokalemic in the ED and given potassium. Troponin and procalcitonin were unremarkable. VBG unremarkable. Patient anxious and keeps asking about her chronic pain medication. 10/14 Patient is feeling better overall. No coughing. On 3 L of nasal cannula and d esats easily. Continue weaning oxygen as able. Corticosteroids. Follow-up with pulmonology upon discharge. 10/15 Patient breathing little better today on 1/2 L nasal cannula. Did give Lasix yesterday with good diuresis. Follow-up chest x-ray today. If discharging today we will have RT assess for home oxygen. BNP quite a bit lower today, suspect some volume overload component. Review of Systems: Pertinent positives as above. Denies fever/chills/nausea/vomiting/chest or abdominal pain/cough/diarrhea. PHYSICAL EXAM General: Alert, Awake, No acute Distress Eyes/N/T: EOMI, no scleral icterus,, Head/Neck: neck supple, full ROM, CV: RRR, 3/6SM, Pulm: clear b/l, no wheezing/rhonchi, no respiratory distress Abd: soft, nontender, +BS x4 Ext: no clubbing/cyanosis/edema, nontender Neuro: Alert, , no focal deficits, moves all extremities, , sensations intact b/l upper/lower Psychiatric: not anxious anymore Skin: warm/dry, normal color Constitutional Vitals: Vital Signs Temp Pulse Resp BP Pulse Ox O2 Del Method O2 Flow Rate 98.1 F 79 12 129/79 90 Nasal Cannula 1.5 10/15/22 08:00 10/15/22 08:00 10/15/22 08:00 10/15/22 08:00 10/15/22 08:00 10/15/22 08:00 10/15/22 08:00 Period Temp Pulse Resp BP Sys/Salazar Pulse Ox O2 Del Method O2 Flow Rate Last 24 Hr 97.1 F-98.1 F 78-92 12- 128-142/73-85 90-100 Nasal Cannula-Nasal Cannula 1-3 Intake and Output 10/14/22 10/15/22 10/15/22 19:59 03:59 11:59 Intake Total 1060 800 150 Output Total 950 1300 Balance 110 -500 150 Weight 73.028 kg Intake & Output: Intake & Output 10/14/22 10/15/22 10/15/22 19:59 03:59 11:59 Intake Total 1060 800 150 Output Total 950 1300 Balance 110 -500 150 Weight 73.028 kg Intake: IV 250 Zithromax 500 mg In Dextrose 5% 250 in Water 250 ml @ 250 mls/hr IV Q24H [facility] Rx#:[id number] Oral 810 800 150 Output: Void Amount 950 1300 Other: Meal Lunch Urine Appearance Clear Clear Urine Color Yellow Yellow # Bowel Movements 1 OBJ DATA Labs 10/13/22 16:52 10/15/22 05:26 Labs: Abnormal Lab Results 10/15/22 10/14/22 10/13/22 05:26 05:00 17:14 ESR POC Potassium Creatinine 0.5 L 0.4 L Glucose 162 H 170 H POC Glucose POC WB Ioniz Calcium Phosphorus 2.2 L GGT 43 H 47 H Alkaline Phosphatase 123 H 143 H Lactate Dehydrogenase 337 H 366 H C-Reactive Protein NT-Pro-B Natriuret Pep 468.1 H 1585.0 H 10/13/22 10/13/22 10/13/22 16:56 16:52 16:52 ESR 73 H POC Potassium 2.7 L* Creatinine Glucose POC Glucose 120 H POC WB Ioniz Calcium 1.14 L Phosphorus GGT Alkaline Phosphatase Lactate Dehydrogenase C-Reactive Protein 15.70 H NT-Pro-B Natriuret Pep 10/13/22 16:52 ESR POC Potassium Creatinine Glucose POC Glucose POC WB Ioniz Calcium Phosphorus GGT Alkaline Phosphatase 149 H Lactate Dehydrogenase C-Reactive Protein NT-Pro-B Natriuret Pep Meds: Medications Acetaminophen (Acetaminophen 325 Mg Tablet) 650 mg PO Q6HP PRN; Protocol PRN Reason: Per Pain Protocol/Fever > 101 Hydrocodone Bitart/Acetaminophen (Hydrocodone/Apap 7.5/325mg Tablet) 1 tab PO TIDP PRN PRN Reason: Pain Last Admin: 10/15/22 05:29 Dose: 1 tab Albuterol/Ipratropium (Ipratropium/Albuterol 3 Ml Ampul.Neb) 3 ml NEB Q4HP PRN PRN Reason: Shortness Of Breath Albuterol/Ipratropium (Ipratropium/Albuterol 3 Ml Ampul.Neb) 3 ml NEB Q8 [facility] Last Admin: 10/15/22 05:25 Dose: 3 ml Aspirin (Aspirin 81 Mg Tab.Chew) 1 mg PO QDAY [facility] Last Admin: 10/14/22 10:23 Dose: 1 mg Atenolol (Atenolol 25 Mg Tablet) 50 mg PO HS [facility] Last Admin: 10/14/22 20:30 Dose: 50 mg Atorvastatin Calcium (Atorvastatin 40 Mg Tablet) 40 mg PO QDAY [facility] Last Admin: 10/14/22 10:22 Dose: 40 mg Budesonide (Budesonide 0.5 Mg/2 Ml Ampul.Neb) 0.5 mg NEB Q12 [facility] Last Admin: 10/14/22 21:17 Dose: 0.5 mg Bupropion HCl (Bupropion 150 Mg Tab.Sr.12h) 150 mg PO DAILY [facility] Last Admin: 10/14/22 10:22 Dose: 150 mg Clopidogrel Bisulfate (Clopidogrel 75 Mg Tablet) 75 mg PO QDAY [facility] Last Admin: 10/14/22 10:22 Dose: 75 mg Docusate Sodium (Docusate Sodium 100 Mg Capsule) 100 mg PO BID [facility] Last Admin: 10/14/22 20:31 Dose: 100 mg Enoxaparin Sodium (Enoxaparin 40 Mg/0.4 Ml Syringe) 40 mg SQ DAILY [facility] Last Admin: 10/14/22 10:23 Dose: 40 mg Fluoxetine HCl (Fluoxetine Hcl 20 Mg Capsule) 40 mg PO HS [facility] Last Admin: 10/14/22 20:30 Dose: 40 mg Potassium Chloride 40 meq/ (Dextrose) 520 mls @ 130 mls/hr IV UD PRN PRN Reason: Potassium < 3 Magnesium Sulfate (Magnesium Sulfate) 2 gm in 50 mls @ 50 mls/hr IV UD PRN PRN Reason: Magnesium </= 1.6 Azithromycin 500 mg/ Dextrose 250 mls @ 250 mls/hr IV Q24H [facility]; Protocol Stop: 10/16/22 09:59 Last Infusion: 10/14/22 17:54 Dose: Infused Imipramine HCl (Imipramine 25 Mg Tablet) 150 mg PO HS [facility] Last Admin: 10/14/22 20:28 Dose: 150 mg Methadone HCl (Methadone 5 Mg Tablet) 10 mg PO Q6HP PRN PRN Reason: Pain Last Admin: 10/14/22 23:59 Dose: 10 mg Methylprednisolone Sodium Succinate (Methylprednisolone Sod Succ 40 Mg/Ml Vial) 80 mg IV Q8 [facility] Last Admin: 10/15/22 05:24 Dose: 80 mg Morphine Sulfate (Morphine 4 Mg/Ml Vial) 0 mg IV Q3HP PRN PRN Reason: Pain Last Admin: 10/13/22 23:27 Dose: 1 mg Ondansetron HCl (Ondansetron 4 Mg/2 Ml Vial) 4 mg IV Q4HP PRN PRN Reason: Nausea And Vomiting Polyethylene Glycol (Polyethylene Glycol 3350 17 Gm Packet) 17 gm PO DAILYP PRN PRN Reason: Constipation Potassium Chloride (Potassium Chloride 20 Meq Tablet) 40 meq PO UD PRN PRN Reason: Potssium is 3-3.5 Potassium Chloride (Potassium Chloride 20 Meq Tablet) 40 meq PO UD PRN PRN Reason: Potassium < 3 Senna (Sennosides 1 Tablet) 2 tab PO DAILYP PRN PRN Reason: Constipation Sodium Chloride (0.9 % Sodium Chloride 10 Ml Syringe) 10 ml IV Q8 [facility] Last Admin: 10/15/22 05:25 Dose: 10 ml A/P Narrative A/P Narrative: A: *Acute on suspected chronic hypoxic respiratory failure: suspected exacerbation of ILD -on 1.5L NC -ESR/CRP elevated -covid/flu/rsv/rvp neg -good diuresis yesterday, f/u cxr *Interstitial lung disease: Was on oxygen after COVID illness a year and half ago -has seen Kathia Green *COPD(Not on home oxygen): *Hypokalemia/hypophosphatemia: *Chronic pain: *Depression/anxiety: cont psych meds *Carotid artery stenosis: On aspirin/statin/Plavix *HTN: on BB P: -empric abx, obtain SC -nebs, IS/Acapella, RT, home IH's -corticosteroids(wean) -O2 supp and wean as able -myco pending -Monitor inflammatory markers -lasix x1 today, monitor uop -Monitor replace electrolytes as needed -cont BB -Continue home aspirin/statin/Plavix -RT to eval for home oxygen prior to discharge -f/u with pulmonology upon d/c -ppx: Lovenox Time Spent With Patient Time: Total time spent is greater than 50% in coordination of care (as documented) at patient's floor/unit and/or counseling patient: Subsequent: Total time with patient: 35 - 49 minutes
[2022-10-15] MEDS: BUDESONIDE 0.5 MG/2 ML AMPUL.NEB NEB SCH (09:01)
--- NOTE | 2022-10-15 09:05 | EKG ---
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
[2022-10-15] MEDS ORDERED: FUROSEMIDE 40 MG/4 ML VIAL IV SCH (09:37)
[2022-10-15] MEDS: buPROPion 150 MG TAB.SR.12H PO SCH (10:17)
[2022-10-15] MEDS: ASPIRIN 81 MG TAB.CHEW PO SCH (10:17)
[2022-10-15] MEDS: METHADONE 5 MG TABLET PO PRN (10:18)
[2022-10-15] MEDS: DOCUSATE SODIUM 100 MG CAPSULE PO SCH (10:18)
[2022-10-15] MEDS: CLOPIDOGREL 75 MG TABLET PO SCH (10:18)
[2022-10-15] MEDS: ENOXAPARIN 40 MG/0.4 ML SYRINGE SQ SCH (10:18)
[2022-10-15] MEDS: ATORVASTATIN 40 MG TABLET PO SCH (10:18)
[2022-10-15] MEDS: AZITHROMYCIN 500 MG in DEXTROSE 5% IN WATER 250 ML IV SCH (12:36)
[2022-10-15] MEDS ORDERED: methylPREDNISolone SOD SUCC 40 MG/ML VIAL IV SCH (14:00)
--- NOTE | 2022-10-15 14:08 | XRay Report ---
CLINICAL INFORMATION: atypical [id number] after diuresis COMPARISON: 10/13/2022 FINDINGS: Heart is normal in size. Mediastinum is unremarkable. Pulmonary vessels have returned to normal caliber. Interstitial edema has nearly resolved. No infiltrates or effusions. Moderate chronic elevation right diaphragm is unchanged. IMPRESSION: Interval resolution of CHF Interpreted and Authenticated by: Mina Dc 10/15/22
[2022-10-16] MEDS ORDERED: ASPIRIN 81 MG TAB.CHEW PO SCH (09:00)
[2022-10-18 17:02] LABS: M. Pneumoniae IGG 2.08
== END 2022-10-15 15:00 | disposition home or self-care (01) | DRG 196 ==
LOC: ED 16:10 → MEDSUR 22:19
PROVIDERS: ADMIT Internal Medicine; ATTEND Internal Medicine